=== PATIENT | female | born 1950 | race Caucasian/White ===

== ENCOUNTER → 2018-02-14 12:26 | Outpatient (CLI) | payer MEDICARE ==
[~2018-02-14 12:26] MED LIST: CELEXA40 MG PO; EFFEXOR XR37.5 MG PO; HYDROCODONE-APA1 TAB PO; IBUPROFEN800 MG PO; NEURONTIN 300300 MG PO; OXYCODONE HCL10 MG PO; TENORMIN100 MG PO; VITAMIN D3400 UNI1 PO; ZESTORETIC 20-1 EACH PO
== END | disposition home or self-care (01) ==
LOC: D.RAD 12:26
DX: M54.16 Radiculopathy, lumbar region (principal)

== ENCOUNTER 2018-04-09 05:12 | Day surgery (SDC) | payer MEDICARE ==
[~2018-04-09] VITALS: Ht 162.6 cm; Wt 63.5 kg
--- NOTE | ~2018-04-09 | OP ---
PATIENT NAME: SHAHLA LUNA MEDICAL RECORD: [id number] :54 LOCATION:[facility] ADMISSION DATE: SURGEON: MELA BELL MD DATE OF OPERATION: 04/09/2018 PREOPERATIVE DIAGNOSES: Lumbar spinal stenosis and foraminal stenosis, L4-L5 bilaterally. PROCEDURE: Left lumbar laminotomy, medial facetectomy and foraminotomy with METRx retractor at L4-L5 with sublaminar decompression at L4-L5 on the right with METRx retractor. DESCRIPTION AND TECHNIQUE: After induction of general endotracheal anesthesia, the patient was rolled prone on a Santiago frame. Lumbar spine was prepped and draped in usual sterile fashion. Fluoroscopic x-ray and spinal needle localized the L4-L5 interspace on the left side. A stab incision was created with a #11 blade and series of dilators was used to advance a METRx retractor to the L4-L5 interspace on the left side. Flow was confirmed with fluoroscopic x-ray. A Midas Louie drill and microscope were used to perform laminotomy, medial facetectomy, and foraminotomy at L4-L5 on the left. Hypertrophied ligamentum flavum was removed with Cloward rongeurs. A foraminotomy was carried on the left with Cloward rongeurs as well. Next, the spinous process was undermined with Midas Louie drill. Ligamentum flavum within the central canal was removed with Cloward rongeurs. Ligamentum flavum in a sublaminar space was also removed with Cloward rongeurs under direct microscopic illumination. Next, foraminotomy was carried out on the right at L4-L5 by removing hypertrophied ligamentum flavum. Both L4 nerve roots on both sides were decompressed well at the conclusion of the procedure. Meticulous hemostasis was maintained throughout the wound and irrigated with copious amounts of Ancef irrigant solution. The retractor was removed. The fascia was closed with 2-0 Vicryl suture, the subdermal layer was closed with 3-0 Vicryl suture. The skin was closed with serjio. A sterile dressing was applied to the wound. The patient was awakened in good condition and taken to recovery. All counts were reported as correct. Estimated blood loss was minimal. TRANSINT:[id number] Voice Confirmation ID: [id number] DOCUMENT ID: [id number] MELA BELL MD at 1710 CC: [id number] DICTATION DATE: 04/22/18 0955 INTEGRATION ENGINEER: 04/22/18 1121 [facility] 04/09/18 [id number] [place] [address]
[2018-04-09 05:36] LABS: HEMATOCRIT 38.2 % (36.0-48.0); HEMOGLOBIN 13.3 g/dL (12-16); MCH 34.3 pg (26.0-34.0); MCHC 34.8 g/dL (31.0-37.0); MCV 98.5 fL (80.0-100.0); MEAN PLATELET VOLUME 9.8 fL (7.4-10.4); RBC 3.88 10x6/uL (4.00-5.40); RDW 13.8 % (11.5-14.5); WBC 7.7 10x3/uL (4.8-10.8)
[2018-04-09 05:45] LABS: APTT 25.1 SECONDS (22.8-39.4); INR 0.95 (0.85-1.17); PROTIME 12.3 SECONDS (11.6-15.0)
[2018-04-09 06:00] LABS: ALBUMIN 4.1 g/dL (3.4-5.0); ALKALINE PHOSPHATASE 49 U/L (46-116); ALT (SGPT) 46 U/L (10-68); BILIRUBIN - TOTAL 0.28 mg/dL (0.2-1.3); CALC OSMOLALITY 288 mosm/kg (275-300); CALCIUM 9.5 mg/dL (8.5-10.1); CARBON DIOXIDE 33.8 mmol/L (21.0-32.0); CHLORIDE - SERUM 103 mmol/L (98-107); CREATININE - SERUM 0.7 mg/dL (0.6-1.3); GLUCOSE 102 mg/dL (74-106); POTASSIUM - SERUM 3.4 mmol/L (3.5-5.1); PROTEIN - SERUM 7.7 g/dL (6.4-8.2); SODIUM 145 mmol/L (136-145); UREA NITROGEN 12 mg/dL (7-18); eGFR NON AFRICAN AMERICAN 89 mL/min (90-120)
[2018-04-09 06:40] VITALS: BP 164/99; Ht 162.6 cm; Wt 63.5 kg
== END 2018-04-09 12:55 | disposition home or self-care (01) ==
LOC: D.OPS 05:12
PROVIDERS: Anesthesiology
DX: M54.16 Radiculopathy, lumbar region (principal)

== ENCOUNTER → 2019-01-16 08:03 | Outpatient (CLI) | payer MEDICARE ==
[2018-04-09 06:40] VITALS: BMI 24.0
== END | disposition home or self-care (01) ==
LOC: D.US 01-15 08:00
PROVIDERS: ATTEND Surgery
DX: Z85.3 Personal history of malignant neoplasm of breast (principal)

== ENCOUNTER → 2019-01-23 11:47 | Outpatient (CLI) | payer MEDICARE ==
[2018-04-09 06:40] VITALS: BMI 24.0
== END | disposition home or self-care (01) ==
LOC: D.NM 01-22 09:45
PROVIDERS: ATTEND Surgery
DX: Z85.3 Personal history of malignant neoplasm of breast (principal)

== ENCOUNTER 2019-02-20 05:34 | Day surgery (SDC) | payer MEDICARE ==
[~2019-02-20] VITALS: Ht 162.6 cm; Wt 68.0 kg
--- NOTE | ~2019-02-20 | OP ---
PATIENT NAME: SHAHLA LUNA MEDICAL RECORD: [id number] :54 LOCATION:[facility] ADMISSION DATE: SURGEON: JIMMY HOYOS MD DATE OF OPERATION: 02/20/2019 PREOPERATIVE DIAGNOSES: 1. Left breast invasive lobular carcinoma. 2. Liver cirrhosis. 3. Hypertension. POSTOPERATIVE DIAGNOSES: 1. Left breast invasive lobular carcinoma. 2. Liver cirrhosis. 3. Hypertension. PROCEDURE: Left lumpectomy with axillary lymph node dissection. SURGEON: Jimmy Hoyos MD REPORT OF PROCEDURE: Preoperatively, the patient underwent lymphoscintigraphy. The patient's left breast and axilla were prepped and draped in sterile fashion. We approached the axilla first. A transverse incision was made overlying an area of increased uptake with the Neoprobe. A dissection was performed through the subcutaneous tissues until we encountered the axillary fascia. Once we penetrated this fascia, I can feel in the axillary space. I could feel a very firm lymph node and this had a reading of approximately 24. As I felt down in the tissue, there were multiple enlarged grossly abnormal lymph nodes that were present in the axilla. At this point, I just elected to perform an axillary lymph node dissection as the patient had an extremely large tumor and these felt grossly abnormal. I felt it would be appropriate to perform an axillary dissection to at least remove the grossly positive lymph nodes. I extended the incision anteriorly and posteriorly and I was able to see the axilla. As we did our dissection, we went anteriorly to the posterior aspect of the pectoral muscle medially towards the chest wall, posteriorly to the latissimus dorsi, and superiorly up towards the axillary vessels. As we did this, we can feel multiple enlarged, very firm lymph nodes that felt like rocks. We dissected the fatty tissue and lymph nodes off and used multiple clips before transecting any lymphatic tissue. There was a large venous structure that was present. This was clipped proximally and distally and ligated. The long thoracic and thoracodorsal nerves were visualized and these were protected through the case and at the conclusion of the dissection were noted to be functioning appropriately. At conclusion of the case, we inspected the tissues and I did not feel any other grossly abnormal lymph nodes present in levels 2-3. We then packed this wound with a lap pad and the mass was easily palpated on the superior aspect of the chest. A transverse incision was made on the superior aspect of the chest above the nipple areolar complex. Electrocautery was used to dissect through the subcutaneous tissues. We used electrocautery to come around this palpable mass with care taken to try and get a core of tissue around it that was normal. This continued all the way down to nearly the pectoral fascia. At the conclusion of removing the specimen, it was marked appropriately and sent off for permanent. There was a very large section of tissue was removed and it probably encompassed about half of the patient's breast tissue when it was all set and done. We inspected the area and assessed for any bleeding sources and any that were seen were treated with electrocautery. We then irrigated out the 2 wounds with sterile water. A 15-Norwegian Demetrius drain was OPERATIVE REPORT [id number] SHAHLA LUNA then inserted in the axilla and sutured down with a 3-0 nylon. The subcutaneous tissues were reapproximated with interrupted 3-0 Vicryl and the skin incisions were closed with running subcutaneous 5-0 Monocryl. COMPLICATIONS: None. CONDITION: Stable. ANESTHESIA: General endotracheal. BLOOD LOSS: 50 mL. TRANSINT:[id number] Voice Confirmation ID: [id number] DOCUMENT ID: [id number] cc: unknown. SOHA Guerra CHRISTIAN MD CC: LIZA MURRAY [id number] DICTATION DATE: 02/20/19 1422 PAINT STOCK CLERK: 02/20/19 1504 [facility] [address] [place] [address]
[~2019-02-20 05:34] MED LIST changes: +FISH OIL 1,0001 CA1 PO; +HYDROCODON-ACET15 ML PO; +K-DUR20 MEQ PO; +NORVASC10 MG PO
[2019-02-20 06:00] LABS: BASOPHILS 0.7 % (0-2); EOSINOPHILS 3.1 % (0-7); HEMATOCRIT 36.4 % (36.0-48.0); HEMOGLOBIN 12.8 g/dL (12-16); IMMATURE GRANULOCYTES 0.3 % (0-5); LYMPHOCYTES 30.7 % (15-50); MCH 36.2 pg (26.0-34.0); MCHC 35.2 g/dL (31.0-37.0); MCV 102.8 fL (80.0-100.0); MEAN PLATELET VOLUME 9.6 fL (7.4-10.4); MONOCYTES 5.7 % (2-11); NEUTROPHILS 59.5 % (40-80); PLATELET COUNT 286 10x3/uL (130-400); RBC 3.54 10x6/uL (4.00-5.40); WBC 7.7 10x3/uL (4.8-10.8)
[2019-02-20 06:12] LABS: APTT 27.3 SECONDS (22.8-39.4); INR 0.99 (0.85-1.17); PROTIME 12.6 SECONDS (11.6-15.0)
[2019-02-20 06:24] LABS: ANION GAP 14.4 mmol/L (8-16); CALCIUM 9.7 mg/dL (8.5-10.1); CARBON DIOXIDE 29.1 mmol/L (21.0-32.0); CREATININE - SERUM 1.1 mg/dL (0.6-1.3); POTASSIUM - SERUM 3.5 mmol/L (3.5-5.1)
[2019-02-20 07:06] VITALS: BP 129/75; Ht 162.6 cm; Wt 68.0 kg
[2019-02-20] MEDS ORDERED: PERCOCET 5-3251 TAB PO (14:08)
== END 2019-02-20 17:35 | disposition home or self-care (01) ==
LOC: D.PAN 05:34 → D.OPS 11:30 → D.PAN 11:30
PROVIDERS: Anesthesiology; ATTEND Surgery
DX: C50.912 Malignant neoplasm of unspecified site of left female breast (principal); K74.60 Unspecified cirrhosis of liver; I10 Essential (primary) hypertension; Z01.812 Encounter for preprocedural laboratory examination

== ENCOUNTER 2020-03-04 08:00 | Outpatient (CLI) | payer MEDICARE ==
[2019-02-20 07:06] VITALS: BMI 25.8
[~2020-03-04 08:00] MED LIST changes: +PERCOCET 5-3251 TAB PO
== END 2020-03-04 10:00 | disposition home or self-care (01) ==
LOC: D.MAMMO 08:00
PROVIDERS: ATTEND Surgery
DX: Z85.3 Personal history of malignant neoplasm of breast (principal)